=== PATIENT | female | born 1960 | race Caucasian/White ===

== ENCOUNTER 2023-06-27 12:24 | Day surgery (SDC) | payer BC, SELFPAY ==
[2023-06-27 12:37] VITALS: BMI 33.8
[2023-06-27 12:43] VITALS: BP 151/72
[2023-06-27 12:45] VITALS: BP 151/72
[2023-06-27 13:03] LABS: Glucose - Point of Care 100 mg/dl (70-99)
[2023-06-27] MEDS: LOW STRENGTH ASPIRIN 324 MG PO (13:27)
[2023-06-27] MEDS: NSS 298 ML IV (13:30)
--- NOTE | 2023-06-27 13:48 | ITS.CL.CATH ---
[employer] - Catheterization
Cardiac Catheterization
Procedure Report:
CARDIAC CATHETERIZATION REPORT
Date of Procedure: 06/27/2023
Referring: Lefty Patterson MD
Indication: Exertional dyspnea with abnormal stress echo
HEMODYNAMIC DATA
AO: 146/82
LV: 146/12
LEFT VENTRICULOGRAPHY: Normal left ventricular function with EF 58%
CORONARY ANGIOGRAPHY
Dominance: Right
Left Main: Normal
LAD: 50% mid LAD stenosis with otherwise trivial luminal irregularities in the LAD system
Circumflex: 30-40% mid circumflex stenosis distal to the takeoff of the very large OM1 and proximal to the origin of the terminal medium sized OM 2
RCA: Large dominant vessel with trivial luminal irregularities
FloWire assessment: At the procedure conclusion the 50% mid LAD lesion was assessed with FloWire. Heparin was used for anticoagulation. A 5 [place] JL 4 guide catheter was used for. A [place] wire was passed into the distal LAD. iFR measurements
were 0.95, 0.94, and 0.94. These are all consistent with nonflow-limiting disease.
Closure Device: None-the procedure was performed via the right radial artery. The Fredo's test was normal prior to the procedure.
Radiation (mGy): 394
DAP (cm2.Gy): 34.8
Fluoroscopy time: 3.8 minutes
CONCLUSIONS
1: Systemic hypertension
2: Normal ventricular function with EF 58%
3. Single-vessel CAD with 50% mid LAD stenosis. This lesion is not flow-limiting by FloWire assessment
4. We have added aspirin and statin therapy. Continue efforts at risk factor modification
Copy to: Lefty Patterson MD, Kendall Link MD
Tim Palacios MD, [facility], [facility]
[2023-06-27 14:40] VITALS: BP 117/64
[2023-06-27 14:51] VITALS: BP 132/62
[2023-06-28 07:56] LABS: ACT-LR - POC > 397 Seconds (116-155)
== END 2023-06-27 17:30 | disposition home or self-care (01) ==
LOC: CATH 12:24
PROVIDERS: ATTENDING PHYSICIAN Internal Medicine Cardiovascular Disease; OTHER PHYSICIAN Internal Medicine Cardiovascular Disease
DX: I25.10 Atherosclerotic heart disease of native coronary artery without angina pectoris (principal); R06.09 Other forms of dyspnea; R94.39 Abnormal result of other cardiovascular function study; I10 Essential (primary) hypertension; E11.9 Type 2 diabetes mellitus without complications; Z79.84 Long term (current) use of oral hypoglycemic drugs; Z79.82 Long term (current) use of aspirin
CPT/HCPCS: C1769; 82962; 85347; 93458; 93571; C1894; Q9967

== ENCOUNTER → 2023-11-07 07:51 | Outpatient (REF) | payer BC, SELFPAY | LOC: RAD 07:51 | PROVIDERS: ATTENDING PHYSICIAN Internal Medicine Cardiovascular Disease; FAMILY PHYSICIAN Internal Medicine | DX: I73.9 Peripheral vascular disease, unspecified (principal) | CPT/HCPCS: 93922; 93925 ==

== ENCOUNTER → 2023-12-18 10:07 | Outpatient (REF) | payer BC, SELFPAY | LOC: RAD 10:07 | PROVIDERS: ATTENDING PHYSICIAN Surgery Vascular Surgery; FAMILY PHYSICIAN Internal Medicine | DX: I87.2 Venous insufficiency (chronic) (peripheral) (principal) | CPT/HCPCS: 93970 ==